=== PATIENT | female | born 1995 | race Caucasian/White ===

== ENCOUNTER 2018-07-05 05:33 | Emergency (ER) | payer OTHER ==
[~2018-07-05] VITALS: Ht 162.6 cm; Wt 113.4 kg
[~2018-07-05 05:33] MED LIST: BUTALB-APAP-CA1 EACH PO; LEVAQUIN 500 M500 M2 PO; MEDROLDOSEPACK PO; PROAIR HFA8.5 GM INH; PROMETHAZINE D480 ML PO; ROBAXIN 750 MG750 M1 PO; TESSALON PERLE100 MG PO; ZPAK PO
[2018-07-05] MEDS ORDERED: FLONASE 0.05%50 MCG (05:42)
[2018-07-05 06:06] LABS: URINE BILIRUBIN NEGATIVE (Negative); URINE BLOOD 1+ (Negative); URINE CLARITY CLEAR; URINE COLOR YELLOW; URINE GLUCOSE-RANDOM NEGATIVE (Negative); URINE KETONES NEGATIVE (Negative); URINE LEUKOCYTES-REFLEX NEGATIVE (Negative); URINE NITRITE-REFLEX NEGATIVE (Negative); URINE PROTEIN NEGATIVE (Negative); URINE SPECIFIC GRAVITY 1.015 (1.005-1.030); URINE UROBILINOGEN 0.2 E.U./dl (0.2-1.0)
[2018-07-05 06:12] LABS: ABSOLUTE LYMPHOCYTES 1.1 thou/uL (0.8-5.3); ABSOLUTE MONOCYTES 0.7 thou/uL (0.0-1.2); ABSOLUTE NEUTROPHILS 4.1 thou/uL (1.6-8.1); BASOPHILS 0.4 %; EOSINOPHILS 0.3 %; HEMATOCRIT 37.3 % (37.0-47.0); HEMOGLOBIN 12.3 gm/dL (12.0-15.0); LYMPHOCYTES 18.2 %; MCH 28.3 pg (26.0-34.0); MCHC 32.9 g/dL (28.0-37.0); MCV 85.9 fL (80.0-100.0); NUCLEATED RBCS 0 /100WBC; PLATELET COUNT* 227 thou/uL (150-400); POLYS 69.1 %; RBC 4.35 mil/uL (4.20-5.00); RDW-CV 14.3 % (10.5-14.5); WBC 5.9 thou/uL (4.0-11.0)
[2018-07-05 06:20] LABS: BACTERIA-REFLEX 1-9 Few /HPF (None Seen); CASTS None Seen /LPF (None Seen); CRYSTALS None Seen /LPF (None Seen); MUCUS 0-3 Light strn/LPF (None Seen); SQUAMOUS 4-10 Moderate /LPF (0-3); URINE RBC 3-10 Few /HPF (0-2); URINE WBC-REFLEX 0-5 Rare /HPF (0-5)
[2018-07-05 06:25] LABS: CALCIUM 8.5 mg/dL (8.5-10.1); CREATININE 0.7 mg/dL (0.6-1.3); POTASSIUM 4.2 mmol/L (3.5-5.1)
[2018-07-05 06:30] LABS: ALBUMIN 3.2 g/dL (3.4-5.0); TOTAL BILIRUBIN 0.1 mg/dL (<0.1-1.0); TOTAL PROTEIN 7.2 g/dL (6.4-8.2)
[2018-07-05] MEDS ORDERED: COMPAZINE10 MG PO (07:56)
[2018-07-05 08:09] VITALS: BP 129/87
== END 2018-07-05 08:09 | disposition home or self-care (01) ==
LOC: M.ERS 05:33
PROVIDERS: Emergency Medicine
DX: G43.909 Migraine, unspecified, not intractable, without status migrainosus (principal); R10.32 Left lower quadrant pain

== ENCOUNTER 2021-07-18 03:04 | Emergency (ER) | payer OTHER ==
[~2021-07-18] VITALS: Ht 162.6 cm; Wt 121.1 kg
[~2021-07-18 03:04] MED LIST changes: +COMPAZINE10 MG PO; +FLONASE 0.05%50 MCG
[2021-07-18 03:27] LABS: URINE CLARITY CLEAR; URINE COLOR ORANGE
[2021-07-18 03:32] LABS: ACETEST (KETONE CONFIRMATORY) Negative (Negative); ICTOTEST (BILI CONFIRMATORY) Negative (Negative); URINE BILIRUBIN ND (Negative); URINE BLOOD ND (Negative); URINE GLUCOSE-RANDOM ND (Negative); URINE KETONES ND (Negative); URINE LEUKOCYTES-REFLEX ND (Negative); URINE NITRITE-REFLEX ND (Negative); URINE PROTEIN ND (Negative); URINE REDUCING SUBSTANCE NEGATIVE (Negative); URINE SPECIFIC GRAVITY ND (1.005-1.030); URINE UROBILINOGEN ND E.U./dl (0.2-1.0)
[2021-07-18 04:01] LABS: BACTERIA-REFLEX >30 Many /HPF (None Seen); CASTS None Seen /LPF (None Seen); CRYSTALS None Seen /LPF (None Seen); MUCUS 0-3 Light strn/LPF (None Seen); SQUAMOUS 0-3 Few /LPF (0-3)
[2021-07-18 04:10] LABS: ABSOLUTE BASOPHILS 0.1 thou/uL (0.0-0.2); ABSOLUTE LYMPHOCYTES 1.9 thou/uL (0.8-5.3); ABSOLUTE NEUTROPHILS 7.5 thou/uL (1.6-8.1); BASOPHILS 0.5 %; EOSINOPHILS 0.5 %; HEMATOCRIT 38.5 % (37.0-47.0); LYMPHOCYTES 17.9 %; MCH 29.5 pg (26.0-34.0); MCHC 33.8 g/dL (28.0-37.0); MCV 87.1 fL (80.0-100.0); MONOCYTES 9.7 %; MPV 8.1 fl. (7.2-11.1); NUCLEATED RBCS 0 /100WBC; PLATELET COUNT* 262 thou/uL (150-400); POLYS 71.4 %; RBC 4.42 mil/uL (4.20-5.00); RDW-CV 14.1 % (10.5-14.5); WBC 10.5 thou/uL (4.0-11.0)
[2021-07-18 04:43] LABS: CALCIUM 8.8 mg/dL (8.5-10.1); CREATININE 0.9 mg/dL (0.6-1.3); POTASSIUM 4.4 mmol/L (3.5-5.1)
[2021-07-18] MEDS ORDERED: ZOFRAN ODT4 MG PO (04:50)
[2021-07-18] MEDS ORDERED: HYDROCODON-ACE1 EAC8 PO (04:50)
[2021-07-18 05:52] VITALS: BP 125/76
== END 2021-07-18 05:53 | disposition home or self-care (01) ==
LOC: M.ERS 03:04
PROVIDERS: Emergency Medicine
DX: N39.0 Urinary tract infection, site not specified (principal); G43.909 Migraine, unspecified, not intractable, without status migrainosus; J45.909 Unspecified asthma, uncomplicated; Z90.49 Acquired absence of other specified parts of digestive tract; Z87.442 Personal history of urinary calculi; Z79.899 Other long term (current) drug therapy